=== PATIENT | female | born 1925 | race Caucasian/White ===

== ENCOUNTER 2017-07-17 07:51 | Emergency (ER) | payer MEDICARE, OTHER ==
--- NOTE | 2017-07-17 08:35 | ERPHSYRPT ---
- History of Present Illness Time Seen by Provider: 07/17/17 08:27 Historian: patient Exam Limitations: no limitations Patient Subjective Stated Complaint: here for chest pain to center of chest this morning, pt states she broke out in a sweat when pain started, Triage Nursing Assessment: pt arrived per ambulance, alert, resp easy, chest clear, skin w/d pale. no edema noted Physician History: The patient is an 89-year-old female accompanied by her twin sister arrives by ambulance from home, complaining of having a burning sensation in her lower chest and epigastric region when she got up this morning. The pain was a 1-2 out of 10 and now it is a 1 out of 10. She was sweaty when it first started. The intensity lasted about 15 minutes. She denies shortness of breath or nausea. She has taken Tums and Pepcid in the past. She has no cardiac history. Her past medical history is significant only for cataracts. Timing/Duration: today Activities at Onset: none Quality: burning Location: central, epigastric Chest Pain Radiation: no radiation Severity of Pain-Max: mild Severity of Pain-Current: mild Modifying Factors: Improves With: nothing Associated Symptoms: heartburn, diaphoresis, No nausea, No vomiting, No palpitations, No shortness of breath, No syncope, No headache, No edema Prior Chest Pain/Cardiac Workup: no prior chest pain Nitro Today/Relief: no nitro taken today Aspirin Treatment Today: no aspirin today Allergies/Adverse Reactions: alendronate sodium [From Fosamax] Allergy (Verified 07/17/17 08:04) aspirin Allergy (Verified 07/17/17 08:04) calcitonin,salmon,synthetic [From Miacalcin] Allergy (Verified 07/17/17 08:04) carbamazepine Allergy (Verified 07/17/17 08:04) cefaclor [From Ceclor] Allergy (Verified 07/17/17 08:04) celecoxib [From Celebrex] Allergy (Verified 07/17/17 08:04) cephalexin [Cephalexin] Allergy (Verified 07/17/17 08:04) diclofenac sodium [From Arthrotec 75] Allergy (Verified 07/17/17 08:04) etodolac [From Lodine] Allergy (Verified 07/17/17 08:04) hydrocodone bitartrate [From Atuss MR] Allergy (Verified 07/17/17 08:04) misoprostol [From Arthrotec 75] Allergy (Verified 07/17/17 08:04) omeprazole [From Prilosec] Allergy (Verified 07/17/17 08:04) omeprazole magnesium [From Prilosec] Allergy (Verified 07/17/17 08:04) oxcarbazepine [From Trileptal] Allergy (Verified 07/17/17 08:04) phenylephrine HCl [From Atuss MR] Allergy (Verified 07/17/17 08:04) piroxicam Allergy (Verified 07/17/17 08:04) pregabalin [From Lyrica] Allergy (Verified 07/17/17 08:04) pyrilamine [From Atuss MR] Allergy (Verified 07/17/17 08:04) ranitidine HCl [From Zantac] Allergy (Verified 07/17/17 08:04) risedronate sodium [From Actonel] Allergy (Verified 07/17/17 08:04) sulfamethoxazole [From Bactrim] Allergy (Verified 07/17/17 08:04) terfenadine [From Seldane] Allergy (Verified 07/17/17 08:04) tramadol Allergy (Verified 07/17/17 08:04) trimethoprim [From Bactrim] Allergy (Verified 07/17/17 08:04) Home Medications: Lutein 6 mg PO DAILY 11/01/13 [History] B2/Vits A,C,E/Lut/Zeaxanth/Min [Icaps Tablet] 1 ea DAILY 07/17/17 [History] Hx Tetanus, Diphtheria Vaccination/Date Given: No Hx Influenza Vaccination/Date Given: No Hx Pneumococcal Vaccination/Date Given: Yes Immunizations Up to Date: Yes - Review of Systems Constitutional: No Fever, No Chills Eyes: No Symptoms Ears, Nose, & Throat: No Symptoms Respiratory: No Cough, No Dyspnea Cardiac: Chest Pain Abdominal/Gastrointestinal: No Symptoms, No Nausea, No Vomiting Genitourinary Symptoms: No Dysuria Musculoskeletal: No Back Pain, No Neck Pain Skin: No Rash Neurological: No Dizziness, No Focal Weakness, No Sensory Changes Psychological: No Symptoms Endocrine: No Symptoms Hematologic/Lymphatic: No Symptoms Immunological/Allergic: No Symptoms All Other Systems: Reviewed and Negative - Past Medical History Pertinent Past Medical History: Yes Neurological History: Migraines, TIA, Other ENT History: Cataracts, Macular Degeneration Cardiac History: Peripheral Vascular Disease Respiratory History: No Pertinent History Endocrine Medical History: No Pertinent History Musculoskeletal History: No Pertinent History GI Medical History: Esophageal Disorder, GERD, Hernia History: No Pertinent History Psycho-Social History: No Pertinent History Female Reproductive Disorders: No Pertinent History Other Medical History: breast bx lt,sinus problems,skin cancer on arms removed, inner ear problems, HIATAL HERNIA. TRIGEMINAL NEURALGIA - Past Surgical History Past Surgical History: Yes Neuro Surgical History: No Pertinent History Cardiac: Cardiac Catheterization Respiratory: No Pertinent History Gastrointestinal: No Pertinent History Genitourinary: No Pertinent History Musculoskeletal: No Pertinent History Female Surgical History: No Pertinent History Other Surgical History: CATARACTS, BREAST BIOPSY - Social History Smoking Status: Never smoker Exposure to second hand smoke: No Alcohol Use: None Drug Use: none Patient Lives Alone: No Significant Family History: no pertinent family hx - Female History Hx Last Menstrual Period: post Hx Now: No - Nursing Vital Signs Nursing Vital Signs: Initial Vital Signs Temperature 97.3 F 07/17/17 07:52 Pulse Rate 79 07/17/17 07:52 Respiratory Rate 14 07/17/17 07:52 Blood Pressure 147/82 07/17/17 07:52 O2 Sat by Pulse Oximetry 96 07/17/17 07:52 Pain Scale Pain Intensity 1 - Physical Exam General Appearance: no apparent distress, alert Eye Exam: PERRL/EOMI, eyes nml inspection Ears, Nose, Throat Exam: normal ENT inspection, moist mucous membranes Neck Exam: normal inspection, non-tender, supple, full range of motion Respiratory Exam: normal breath sounds, lungs clear, No respiratory distress Cardiovascular Exam: regular rate/rhythm, normal heart sounds Gastrointestinal/Abdomen Exam: soft, No tenderness, No mass Pelvic Exam: not done Rectal Exam: not done Back Exam: normal inspection, No CVA tenderness, No vertebral tenderness Extremity Exam: normal inspection, normal range of motion Neurologic Exam: alert, oriented x 3, cooperative, normal mood/affect, sensation nml, No motor deficits Skin Exam: normal color, warm, dry SpO2 Interpretation: normal SpO2: 96 Oxygen Delivery: Room Air - Course EKG Interpreted by Me: RATE, Sinus Rhythm, Left Thompson Deviation, NORMAL INTERVALS , NORMAL ST-T - Radiology Exams Chest X-ray Interpretation: Teleradiologist Report, Negative (stable nonacute chest with chronic features per Dr Lindsey.) Ordered Tests: Active Orders 24 hr Category Date Time Status Vault Cashier STAT Care 07/17/17 08:52 Active EKG-ER Only STAT Care 07/17/17 08:53 Active IV Insertion STAT Care 07/17/17 08:36 Active CHEST 2 VIEWS (PA AND LAT) Stat Exams 07/17/17 08:35 Completed CBC W DIFF Stat Lab 07/17/17 08:15 Completed CMP Stat Lab 07/17/17 08:15 Completed CULTURE,URINE Stat Lab 07/17/17 08:35 Received TROPONIN Stat Lab 07/17/17 08:15 Completed UA W/ MICROSCOPIC Stat Lab 07/17/17 08:35 Completed Medication Summary Discontinued Medications Generic Name Dose Route Start Last Admin Trade Name Freq PRN Reason Stop Dose Admin Al Hydrox/Mg Hydrox/Simethicone Confirm 07/17/17 08:57 Maalox Es 30 Ml Unit Dose Administered 07/17/17 08:58 Dose 30 ml .ROUTE .STK-MED ONE Lidocaine HCl Confirm 07/17/17 08:58 Xylocaine Hcl Viscous * Administered 07/17/17 08:59 Dose 15 ml .ROUTE .STK-MED ONE Magnesium Hydroxide 45 ml 07/17/17 08:36 07/17/17 08:59 Gi Cocktail 45 Ml (Maalox/Lidocaine) PO 07/17/17 08:37 45 ml STAT ONE Administration Lab/Rad Data: Laboratory Result Diagrams 07/17/17 08:15 07/17/17 08:15 Laboratory Results 07/17/17 07/17/17 07/17/17 Range/Units 08:35 08:15 08:15 WBC 5.5 (4.0-10.5) K/mm3 RBC 4.49 (4.1-5.4) M/mm3 Hgb 13.5 (12.0-16.0) gm/dl Hct 41.5 (35-47) % MCV 92.4 (78-100) fl MCH 30.1 (26-32) pg MCHC 32.5 (32-36) g/dl RDW 13.5 (11.5-14.0) % Plt Count 160 (150-450) K/mm3 MPV 11.8 H (6-9.5) fl Gran % 63.4 (36.0-66.0) % Lymphocytes % 21.7 L (24.0-44.0) % Monocytes % 11.3 (0.0-12.0) % Eosinophils % 2.7 (0.00-5.0) % Basophils % 0.9 (0.0-0.4) % Basophils # 0.05 (0-0.4) Sodium 140 (136-145) mEq/L Potassium 4.5 (3.5-5.1) mEq/L Chloride 104 (98-107) mEq/L Carbon Dioxide 28.5 (21-32) mEq/L Anion Gap 12.0 (5-15) MEQ/L BUN 23 H (9-20) mg/dL Creatinine 1.03 (0.55-1.30) mg/dl Estimated GFR 54 ML/MIN Glucose 104 (70-110) MG/DL Calcium 9.4 (8.5-10.1) mg/dL Total Bilirubin 0.40 (0.2-1.0) mg/dL AST 25 (15-37) U/L ALT 20 (12-78) U/L Alkaline Phosphatase 83 (46-116) U/L Troponin I < 0.017 (0.000-0.056) ng/ml Serum Total Protein 7.1 (6.4-8.2) gm/dL Albumin 3.8 (3.4-5.0) g/dL Ur Collection Type CCMS Urine Color YELLOW (YELLOW) Urine Appearance CLOUDY (CLEAR) Urine pH 7.0 (5-6) Ur Specific [place] 1.005 (1.005-1.025) Urine Protein TRACE (Negative) Urine Ketones NEGATIVE (NEGATIVE) Urine Blood TRACE NON-HEM (0-5) Best/ul Urine Nitrite NEGATIVE (NEGATIVE) Urine Bilirubin NEGATIVE (NEGATIVE) Urine Urobilinogen NORMAL (0-1) mg/dL Ur Leukocyte Esterase NEGATIVE (NEGATIVE) Urine Microscopic RBC 0-2 (0-2) /HPF Urine Microscopic WBC 0-2 (0-5) /HPF Urine Bacteria RARE (NEGATIVE) /HPF Hyaline Casts 0-2 (0-2) /LPF Granular Casts 5-10 (NEGATIVE) /LPF Urine Culture Reflexed YES (NO) Urine Glucose NEGATIVE (NEGATIVE) mg/dL Specimen Received 07/17/17 0855 - Progress Progress: improved Progress Note: 07/17/17 09:45 After the patient took a GI cocktail, her pain has resolved. Blood Culture(s) Obtained: No Antibiotics given: No Counseled pt/family regarding: lab results, diagnosis, need for follow-up, rad results - Departure Time of Disposition: 09:45 Departure Disposition: Home Clinical Impression: Reflux gastritis Condition: Stable Critical Care Time: No Referrals: SERGIO CRENSHAW [Primary Care Provider] - Additional Instructions: You have gastric reflux that is causing your pain. You were given a GI cocktail in the ER. Take Nexium 20 mg daily for 7 days. Raise the head of your bed. Tries to eat your last meal of the day 3-4 hours before going to bed. Follow-up in one week with your local doctor. Prescriptions: Esomeprazole Magnesium [Nexium] 20 mg PO DAILY #7 capsule.
[2017-07-17] MEDS ORDERED: GI COCKTAIL 45 ML (Maalox/Lidocaine) PO ONE (08:36)
[2017-07-17 08:45] LABS: BASOPHIL % 0.9 % (0.0-0.4); Eosinophil % 2.7 % (0.00-5.0); Granulocytes % 63.4 % (36.0-66.0); Lymphocytes % 21.7 % (24.0-44.0); Mean Cell Volume 92.4 fl (78-100); Mean Corpuscular Hemoglobin 30.1 pg (26-32); Mean Platelet Volume 11.8 fl (6-9.5); Monocytes % 11.3 % (0.0-12.0); Platelet Count 160 K/mm3 (150-450); Red Blood Count 4.49 M/mm3 (4.1-5.4); Red Cell Distribution Width 13.5 % (11.5-14.0); White Blood Count 5.5 K/mm3 (4.0-10.5)
[2017-07-17 08:57] LABS: ALBUMIN 3.8 g/dL (3.4-5.0); ALKALINE PHOSPHATASE 83 U/L (46-116); BLOOD UREA NITROGEN 23 mg/dL (9-20); CHLORIDE 104 mEq/L (98-107); Carbon Dioxide 28.5 mEq/L (21-32); Glucose 104 MG/DL (70-110); Potassium 4.5 mEq/L (3.5-5.1); SGOT/AST 25 U/L (15-37); SGPT/ALT 20 U/L (12-78); SODIUM 140 mEq/L (136-145); Total Protein 7.1 gm/dL (6.4-8.2)
[2017-07-17] MEDS ORDERED: MAALOX ES 30 ML UNIT DOSE ONE (08:57)
[2017-07-17 08:58] LABS: TROPONIN < 0.017 ng/ml (0.000-0.056)
[2017-07-17] MEDS ORDERED: XYLOCAINE HCl Viscous ONE (08:58)
[2017-07-17 09:02] LABS: Collection Type CCMS
[2017-07-17 09:04] LABS: Bilirubin NEGATIVE (NEGATIVE); Blood TRACE NON-HEM Ery/ul (0-5); COMPLETE URINE MICROSCOPIC? YES; Glucose NEGATIVE (NEGATIVE); Leukocyte Esterase NEGATIVE (NEGATIVE)
[2017-07-17 09:07] LABS: Bacteria RARE /HPF (NEGATIVE); WBC 0-2 /HPF (0-5)
[2017-07-17 09:08] LABS: ADD URINE CULTURE? YES (NO); Hyaline Casts 0-2 /LPF (0-2)
--- NOTE | 2017-07-17 09:23 | XRAY ---
Indication: Chest pain. Comparison: September 06, 2009. PA/lateral chest remains hyperinflated and clear. Heart is not enlarged. Descending aorta remains markedly tortuous. Bony thorax intact again with osteopenia, degenerative changes, and scoliosis. Impression: Stable nonacute hyperinflated chest with chronic features.
[2017-07-17 10:04] VITALS: BP 169/91; PULSE 62; O2SAT 100
== END 2017-07-17 10:02 | disposition home or self-care (01) ==
LOC: ED 07:51
DX: K21.9 Gastro-esophageal reflux disease without esophagitis (principal); I73.9 Peripheral vascular disease, unspecified; Z86.73 Personal history of transient ischemic attack (TIA), and cerebral infarction without residual deficits
CPT/HCPCS: 36000; 36415; 71020; 80053; 81000; 84484; 85025; 87086; 93005; 93041; 99284; A9270-GY